=== PATIENT | female | born 1965 | race Caucasian/White ===

== ENCOUNTER 2019-07-21 07:30 | Emergency (ER) | payer OTHER, SELFPAY ==
[2019-07-21] VITALS (29 sets, daily range): BP systolic 121–216; BP diastolic 59–94; PULSE 51–87; RESP 13–24; TEMP 36.8; O2SAT 94–99
--- NOTE | 2019-07-21 07:44 | DI.RAD.S_ITS ---
PROCEDURE: XR CHEST 1V INDICATIONS: chest pain TECHNIQUE: One view of the chest was acquired. COMPARISON: None. FINDINGS: Surgical changes and devices: None. Lungs and pleura: Lungs are clear. No pleural effusions or pneumothorax. Mediastinum: Mediastinal contours appear normal. Heart size is normal. Bones and chest wall: No suspicious bony lesions. Overlying soft tissues appear unremarkable. IMPRESSION: No acute cardiopulmonary pathology. Dictated by: Dhaval Bonilla M.D. on 07/21/2019 at 8:28 Approved by: Dhaval Bonilla M.D. on 07/21/2019 at 8:29
[2019-07-21] MEDS: ASPIRIN 81 MG CHEW TAB 324 MG PO (07:48)
[2019-07-21] MEDS: NITROGLYCERIN 0.4 MG SL TAB SL ×4 (07:49→10:48)
--- NOTE | 2019-07-21 07:49 | ED_ITS ---
HPI - Chest Pain General Chief Complaint: Chest Pain Stated Complaint: chest pain Time Seen by Provider: 07/21/19 07:40 History of Present Illness HPI narrative: 53-year-old woman with a history of hypertension and no prior cardiac events began having severe chest pain at 5:45 a.m. this morning after she got up in was taking a shower. She describes it as 8/10, pressure radiating through between her shoulder blades with a sharp stabbing component as well, she is dyspneic she is diaphoretic and clearly still hurting. Mild nausea no vomiting. She has been well until the pain acutely started. Does not describe dyspnea, exertional dyspnea, orthopnea, increased fatigue over the last number of days. She has had no fever, cough, cold, chills, increased edema, belly pain or other concerning findings recently. Related Data Home Medications Medication Instructions Recorded Confirmed lisinopril 20 mg PO DAILY 07/21/19 07/21/19 Allergies Allergy/AdvReac Type Severity Reaction Status Date / Time No Known Drug Allergies Allergy Verified 07/21/19 09:36 Review of Systems Review of Systems Narrative: All systems reviewed and are unremarkable except as noted in HPI and below Exam Narrative Exam Narrative: General: Moderately obese. Obvious distress with chest pain and diaphoresis. Able to give a complete and coherent history. Well-nourished well-developed HEENT: Moist mucous membranes, normal sclera with reactive pupils, Neck: No JVD, supple Respiratory: Lungs are clear to auscultation, no wheezing no rales no rhonchi. Full and symmetrical air movement Cardiac: Regular rate and rhythm no murmurs no bruits Abdomen: Soft nontender good bowel tones, no flank pain Skin: Warm and dry, no rashes Neurologic: Grossly neurologically intact with no obvious asymmetries or ab normalities Extremities: No trauma, well perfused Psych: Cooperative, appropriate insight and affect Initial Vital Signs Initial Vital Signs: Vital Signs Temperature 98.2 F 07/21/19 07:35 Pulse Rate 77 07/21/19 07:35 Respiratory Rate 24 07/21/19 07:35 Blood Pressure 216/94 H 07/21/19 07:35 Pulse Oximetry 96 07/21/19 07:35 Course Orders Ordered: Discontinued Medications Aspirin (Aspirin Chew) 324 mg PO NOW ONE Stop: 07/21/19 07:45 Last Admin: 07/21/19 07:48 Dose: 324 mg Documented by: JERO Heparin Sodium (Porcine) (Heparin) 7,500 unit IV NOW ONE Stop: 07/21/19 08:22 Last Admin: 07/21/19 08:40 Dose: 5,000 unit Documented by: JERO Heparin Sodium/Dextrose (Heparin Drip) 25,000 unit in 500 mls @ 20 mls/hr IV CONT THOMAS; Protocol Last Admin: 07/21/19 08:45 Dose: 1,000 units/hr, 20 mls/hr Documented by: JERO Metoprolol Tartrate (Lopressor) 5 mg IV Q5M THOMAS Stop: 07/21/19 08:11 Last Admin: 07/21/19 08:30 Dose: Not Given Documented by: Admin: 07/21/19 08:22 Dose: 2.5 mg Documented by: Admin: 07/21/19 08:05 Dose: 5 mg Documented by: JERO Morphine Sulfate (Morphine) 2 mg IV Q5MIN PRN PRN Reason: Chest Pain Last Admin: 07/21/19 10:48 Dose: 2 mg Documented by: JERO Nitroglycerin (Nitrostat) 0.4 mg SL [id number] PRN PRN Reason: Chest Pain Last Admin: 07/21/19 08:20 Dose: 0.4 mg Documented by: Admin: 07/21/19 07:57 Dose: 0.4 mg Documented by: Admin: 07/21/19 07:49 Dose: 0.4 mg Documented by: JERO Nitroglycerin (Nitro-Bid) 0.5 inch TOP NOW ONE Stop: 07/21/19 08:22 Last Admin: 07/21/19 08:36 Dose: 0.5 inch Documented by: JERO Nitroglycerin (Nitrostat) 0.4 mg SL NOW ONE Stop: 07/21/19 10:40 Last Admin: 07/21/19 10:48 Dose: 0.4 mg Documented by: JERO Nitroglycerin (Nitro-Bid) 0.5 inch TOP NOW ONE Stop: 07/21/19 10:40 Last Admin: 07/21/19 10:54 Dose: 0.5 inch Documented by: JERO Vital Signs Vital signs: Vital Signs - 8 hr 07/21/19 07:35 07/21/19 07:57 07/21/19 08:04 Temperature 98.2 F Pulse Rate 77 76 87 Respiratory Rate 24 15 Blood Pressure 216/94 H 161/77 H Blood Pressure [Right Arm] 146/74 H Pulse Oximetry 96 97 07/21/19 08:10 07/21/19 08:15 07/21/19 08:20 Temperature Pulse Rate 66 65 64 Respiratory Rate 18 23 Blood Pressure 140/71 Blood Pressure [Right Arm] 147/81 H 140/71 Pulse Oximetry 96 98 07/21/19 08:23 07/21/19 08:30 07/21/19 08:35 Temperature Pulse Rate 66 60 58 L Respiratory Rate 18 17 21 Blood Pressure Blood Pressure [Right Arm] 121/64 133/69 131/71 Pulse Oximetry 95 98 96 07/21/19 08:36 07/21/19 08:40 07/21/19 09:00 Temperature Pulse Rate 56 L 57 L 76 Respiratory Rate 16 21 Blood Pressure 133/59 L Blood Pressure [Right Arm] 145/70 H 159/70 H Pulse Oximetry 98 98 07/21/19 09:05 07/21/19 09:15 07/21/19 09:30 Temperature Pulse Rate 55 L 55 L 54 L Respiratory Rate 14 13 18 Blood Pressure Blood Pressure [Right Arm] 136/63 127/65 126/67 Pulse Oximetry 97 97 96 07/21/19 09:37 07/21/19 09:45 07/21/19 10:00 Temperature Pulse Rate 53 L 51 L 51 L Respiratory Rate 22 18 14 Blood Pressure Blood Pressure [Right Arm] 124/67 130/66 133/70 Pulse Oximetry 98 97 98 07/21/19 10:30 07/21/19 10:48 07/21/19 11:00 Temperature Pulse Rate 52 L 54 L 61 Respiratory Rate 19 17 Blood Pressure 131/81 Blood Pressure [Right Arm] 130/69 133/73 Pulse Oximetry 97 99 07/21/19 11:45 Temperature Pulse Rate 58 L Respiratory Rate 16 Blood Pressure Blood Pressure [Right Arm] 139/81 Pulse Oximetry 98 MDM - Chest Pain Medical Records Data Attestation: I reviewed the patient's medical records. Lab Data Attestation: I reviewed the patient's lab results. Result diagrams: 07/21/19 07:38 07/21/19 07:38 Labs: Lab Results 0307/21/19 07/21/19 Range/Units 07:38 07:38 07:38 WBC 8.3 (4.5-11.0) X10^3/uL RBC 4.96 (4.0-5.2) X10^6/uL Hgb 14.2 (12.0-16.0) g/dL Hct 41.8 (36-46) % MCV 84.4 (80-100) fL MCH 28.6 (26-34) PG MCHC 33.9 (30-36) % RDW 14.0 (11.6-14.8) % Plt Count 279 (150-400) X10^3/uL Neut % (Auto) 52.7 (50-75) % Lymph % (Auto) 38.5 (25-40) % [place] % (Auto) 5.5 (3-14) % Eos % (Auto) 2.6 (2-4) % Baso % (Auto) 0.7 (0-2) % Neut # (Auto) 4400 (8169-5836) /uL Lymph # (Auto) 3200 (6718-2179) /uL [place] # (Auto) 500 (0-900) /uL Eos # (Auto) 200 (0-450) /uL Baso # (Auto) 100 (0-100) /uL PT 11.2 (10.1-12.7) SECONDS INR 1.0 (0.9-1.3) APTT 33 (26.4-36.2) SECONDS Sodium 137 (137-145) mmol/L Potassium 4.0 (3.4-5.1) mmol/L Chloride 104 (98-107) mmol/L Carbon Dioxide 22 (22-32) mmol/L BUN 11 (7-17) mg/dL Creatinine 0.58 (0.52-1.04) mg/dL Estimated GFR > 60.0 (>60) mL/min BUN/Creatinine Ratio 19.0 (6-22) Glucose 167 H (70-100) mg/dL Calcium 9.6 (8.4-10.2) mg/dL Total Bilirubin 0.6 (0.2-1.3) mg/dL AST 26 (14-36) IU/L ALT 28 (<35) IU/L Alkaline Phosphatase 82 (38-126) U/L Total Creatine Kinase 109 (30-135) U/L CK-MB (CK-2) 0.45 (<2.37) ng/mL CK-MB (CK-2) Rel Index 0.4 L (1.5-5.0) % Troponin I < 0.012 (0.01-0.034) ng/mL Total Protein 8.2 (6.3-8.2) g/dL Albumin 4.5 (3.5-5.0) g/dL Globulin 3.7 (1.7-4.1) g/dL Albumin/Globulin Ratio 1.2 (1.0-2.8) Lipase 78 (23-300) U/L 07/21/19 Range/Units 10:36 WBC (4.5-11.0) X10^3/uL RBC (4.0-5.2) X10^6/uL Hgb (12.0-16.0) g/dL Hct (36-46) % MCV (80-100) fL MCH (26-34) PG MCHC (30-36) % RDW (11.6-14.8) % Plt Count (150-400) X10^3/uL Neut % (Auto) (50-75) % Lymph % (Auto) (25-40) % [place] % (Auto) (3-14) % Eos % (Auto) (2-4) % Baso % (Auto) (0-2) % Neut # (Auto) (1698-6436) /uL Lymph # (Auto) (5009-9499) /uL [place] # (Auto) (0-900) /uL Eos # (Auto) (0-450) /uL Baso # (Auto) (0-100) /uL PT (10.1-12.7) SECONDS INR (0.9-1.3) APTT (26.4-36.2) SECONDS Sodium (137-145) mmol/L Potassium (3.4-5.1) mmol/L Chloride (98-107) mmol/L Carbon Dioxide (22-32) mmol/L BUN (7-17) mg/dL Creatinine (0.52-1.04) mg/dL Estimated GFR (>60) mL/min BUN/Creatinine Ratio (6-22) Glucose (70-100) mg/dL Calcium (8.4-10.2) mg/dL Total Bilirubin (0.2-1.3) mg/dL AST (14-36) IU/L ALT (<35) IU/L Alkaline Phosphatase (38-126) U/L Total Creatine Kinase (30-135) U/L CK-MB (CK-2) (<2.37) ng/mL CK-MB (CK-2) Rel Index (1.5-5.0) % Troponin I < 0.012 (0.01-0.034) ng/mL Total Protein (6.3-8.2) g/dL Albumin (3.5-5.0) g/dL Globulin (1.7-4.1) g/dL Albumin/Globulin Ratio (1.0-2.8) Lipase (23-300) U/L Imaging Data Chest x-ray: Attestation: I personally reviewed and interpreted this imaging study as follows: Radiologist's Impression: IMPRESSION: No acute cardiopulmonary pathology. Dictated by: Dhaval Bonilla M.D. on 07/21/2019 at 8:28 CTA chest abdomen pelvis: Radiologist's Impression: IMPRESSION: No aneurysm or aortic dissection found, no pulmonary embolus seen. Source of current pain syndrome is not identified. Note is made of moderate fatty infiltration throughout the liver. No acute disease. Dictated by: Mark Matos M.D. on 07/21/2019 at 9:11 ECG Data Attestation: I personally reviewed and interpreted this ECG as follows: Interpretation: EKG 1. 7:37 sinus rhythm at a rate of 68 ST T wave changes anteriorly in V1 V2 V3, minor not meeting STEMI criteria but concerning given clinical situation Q-waves in lead III EKG #2 7:54 sinus rhythm at a rate of 80 Similar to initial EKG without worsening ST changes EKG #3 Sinus rhythm at a rate of [address]-T wave changes MDM Narrative Medical decision making narrative: 53-year-old woman presents with severe chest pain started while in shower. She drove herself to [employer] where her son met er and drove her from [facility]. Initially her pain was 8/10 and radiating through to her shoulder blades. After the 1st nitro is down to 3/10 but still bothering her between the shoulder blades. Initial EKG did not meet acute STEMI criteria. Will begin heparin, continue oral nitrates, IV metoprolol, topical nitrates and less pain is not resolved and continue to watch EKG findings and await blood work. Concern at this point is obviously an acute coronary syndrome that is not meeting STEMI criteria. 8:05 page to [facility] Cardiology, non STEMI. Assuming transfer will be needed, started with [facility] cardiology. We were unable to contact a physician with numbers 8:07 page to on-call Cardiology for [facility] 8:24 pain is down to a 1 after 3 nitro and 3 doses of IV metoprolol. No longer diaphoretic. Initial troponin is negative. Will repeat EKG and troponin in 2 hours. Anticipate need for transfer to facility were catheterization lab will eventually be available. 8:38 Dr Leary. Agrees with current plan. Suggested CTA given pain radiating to back and HTN. Will order. CXR does not show widened mediastinum. Pain is rated 2/10 currently, and much less noticible between her shoulder blades. 9:15 Dr Boo, agrees with transfer, requests admit to hospitalist service at [facility] 10:39 pain is increasing slightly with half an inch of nitropaste on. Increase to a full inch, treat with morphine. Third EKG is reviewed and shows no acute ST T wave findings. CTA does not suggest acute dissection or pulmonary embolism 11:14 2nd troponin is negative pain was improved with increase nitrates. Now she is describing pain that can be exacerbated with thoracic movement and manipulation of her left arm and shoulder. She states that previously the pain was not musculoskeletal at all. Will review with hospitalist at [facility] for appropriateness of admit versus transfer 11:48 Dr Bennett - will admit to [facility], but concerned that, with initial presentation severity and diaphoresis, that it may be more appropriate to go to [facility]. will discuss with [facility] hospitalist. 12:23 Dr Bailon, will accept pt at [facility]. Will await room confirmation and arrange transport. Pt notified. Discharge Plan Departure Patient Disposition: [facility] Clinical Impression: Acute coronary syndrome Discharge Date/Time: 07/21/19 14:40 Prescriptions: No Action lisinopril 20 mg tablet 20 mg PO DAILY RF: 0
[2019-07-21 07:56] LABS: Add Manual Diff / Slide Review NO; Basophils Absolute Auto 100 /uL (0-100); Basophils Percent Auto 0.7 % (0-2); Eosinophils Absolute Auto 200 /uL (0-450); Eosinophils Percent Auto 2.6 % (2-4); Hematocrit 41.8 % (36-46); Hemoglobin 14.2 g/dL (12.0-16.0); Lymphocytes Absolute Auto 3200 /uL (1100-4500); Lymphocytes Percent Auto 38.5 % (25-40); Mean Corpuscular HGB Conc 33.9 % (30-36); Mean Corpuscular Hemoglobin 28.6 PG (26-34); Mean Corpuscular Volume 84.4 fL (80-100); Monocytes Absolute Auto 500 /uL (0-900); Monocytes Percent Auto 5.5 % (3-14); Neutrophils Absolute Auto 4400 /uL (1500-7000); Neutrophils Percent Auto 52.7 % (50-75); Platelet Count 279 X10^3/uL (150-400); Prothrombin Time 11.2 SECONDS (10.1-12.7); Red Blood Cell Count 4.96 X10^6/uL (4.0-5.2); White Blood Cell Count 8.3 X10^3/uL (4.5-11.0)
[2019-07-21 07:59] LABS: PTT Partial Thromboplastin Tim 33 SECONDS (26.4-36.2)
[2019-07-21 08:00] LABS: Alanine Aminotransferase 28 IU/L (<35); Albumin 4.5 g/dL (3.5-5.0); Albumin Globulin Ratio 1.2 (1.0-2.8); Alkaline Phosphatase 82 U/L (38-126); Aspartate Aminotransferase 26 IU/L (14-36); Bilirubin Total 0.6 mg/dL (0.2-1.3); Blood Urea Nitrogen 11 mg/dL (7-17); Calcium 9.6 mg/dL (8.4-10.2); Carbon Dioxide 22 mmol/L (22-32); Chloride 104 mmol/L (98-107); Creatine Kinase 109 U/L (30-135); Estimated Glomerular Filt Rate > 60.0 mL/min (>60); Globulin 3.7 g/dL (1.7-4.1); Glucose 167 mg/dL (70-100); HEMOLYSIS < 15 (0-50); Lipase 78 U/L (23-300); Sodium 137 mmol/L (137-145); Total Protein 8.2 g/dL (6.3-8.2)
[2019-07-21] MEDS: METOPROLOL TARTRATE 5 MG/5 ML INJ IV ×2 (08:05→08:22)
[2019-07-21 08:12] LABS: Troponin I < 0.012 ng/mL (0.01-0.034)
[2019-07-21 08:15] LABS: CKMB % Relative Index 0.4 % (1.5-5.0); Creatine Kinase MB 0.45 ng/mL (<2.37)
[2019-07-21] MEDS: NITROGLYCERIN OINT 1 INCH/GM OINT...G. 0.5 INCH TOP ×2 (08:36→10:54)
[2019-07-21] MEDS: HEPARIN 5,000 UNIT/ML VIAL 7500 UNIT IV (08:40)
[2019-07-21] MEDS: HEPARIN DRIP 25,000 UNIT/500 ML IV.SOLN 20 UNIT IV (08:45)
--- NOTE | 2019-07-21 08:46 | DI.CT.S_ITS ---
PROCEDURE: CT ANGIO CHEST ABDOMEN PELVIS INDICATIONS: chest pain radiating through to shoulder blades, ?dissection TECHNIQUE: Precontrast 5 mm thick sections acquired from the lung apices to the iliac crests. After the administration of intravenous contrast, 2.5 mm thick sections again acquired from the lung apices to the iliac crests. Maximum intensity projection (MIP) oblique sagittal and coronal reformats were then acquired. For radiation dose reduction, the following was used: automated exposure control. COMPARISON: [facility], CR, XR CHEST 1V, 07/21/2019, 8:04. FINDINGS: Image quality: Excellent. AORTA: Intramural hematoma: Absent Maximum hematoma thickness: Not applicable Focal contrast enhancement: Intramural blood pool (< 2 mm neck or imperceptible communication with aortic lumen): Absent. Ulcer-like projection (broad communication with aortic lumen > 3 mm): Absent. Dissection: Absent Sudheer classification: Not applicable Maximum aortic diameter: 3.5 cm AP, 3.1 cm transverse at the ascending aorta, normal. Periaortic hematoma: . Absent. CHEST: Lungs and pleura: No acute airspace opacities. No pleural effusions or pneumothorax. Central and peripheral airways are patent and normal in caliber. Mediastinum: Heart size is normal. No pericardial effusion. No mediastinal or hilar adenopathy by size criteria. Central pulmonary arteries are normal in size. Esophagus is normal in caliber. No hiatal hernias. Bones and chest wall: No axillary adenopathy by size criteria. Thyroid gland appears normal. No suspicious bony lesions. No vertebral body compression fractures. ABDOMEN: Vasculature: Celiac trunk and mesenteric arteries are patent. Renal arteries are also patent. Solid organs: Liver is normal in size and enhancement. The liver appears diffusely fatty infiltrated. Gallbladder appears normal. Biliary system is non dilated. Pancreas enhances normally. Spleen is normal in size and enhancement. No adrenal nodules. Both kidneys are normal in size and enhancement, without hydronephrosis. Peritoneum and bowel: No free fluid or air. Bowel loops are normal in caliber and wall thickness. Nodes and vessels: No retroperitoneal or mesenteric adenopathy by size criteria. Inferior vena cava is normal in morphology. Miscellaneous: No ventral hernias. PELVIS: Genitourinary: Bladder wall thickness is normal. Miscellaneous: No inguinal hernias or adenopathy. No ventral hernias. Bones: No suspicious bony lesions. No vertebral body compression fractures. IMPRESSION: No aneurysm or aortic dissection found, no pulmonary embolus seen. Source of current pain syndrome is not identified. Note is made of moderate fatty infiltration throughout the liver. No acute disease. Dictated by: Mark Matos M.D. on 07/21/2019 at 9:11 Approved by: Mark Matos M.D. on 07/21/2019 at 9:19
[2019-07-21] MEDS: MORPHINE 2 MG/ML INJ IV (10:48)
[2019-07-21 11:07] LABS: Troponin I < 0.012 ng/mL (0.01-0.034)
--- NOTE | 2019-08-06 10:22 | PC.NURSE ---
IV Heparin running upon patient transfer at 1440 per RN Karen
== END 2019-07-21 14:40 | disposition short-term general hospital (02) ==
PROVIDERS: Emergency Provider Emergency Medicine
DX: I24.9 Acute ischemic heart disease, unspecified (principal); I10 Essential (primary) hypertension
CPT/HCPCS: 36415; 71045; 71275; 74174; 80053; 82550; 82553; 83690; 84484; 85025; 85610; 85730; 93005; 96365; 96366; 96374; 96375; 99285; J1644; J2270; Q9967

== ENCOUNTER → 2020-04-08 17:35 | Outpatient (CLI) | payer OTHER, SELFPAY ==
--- NOTE | 2020-04-08 | DI.MRI.S_ITS ---
PROCEDURE: MR KNEE LT WO CON INDICATIONS: Pain in left knee TECHNIQUE: Noncontrast sagittal PD fast spin echo and T2 fast spin echo with fat saturation, sagittal 3-D FLASH with fat saturation; coronal T1 spin echo and PD fast spin echo with fat saturation, and axial PD fast spin echo with fat saturation through the knee. COMPARISON: [facility], , KNEE 3V LEFT, 04/24/2015, 18:28. FINDINGS: Image quality: Excellent. Menisci: There is medial meniscal extrusion. Horizontal tear versus intrasubstance degeneration of the posterior horn of the medial meniscus. Possible vertical tear in the peripheral aspect of the body of the medial meniscus. The lateral meniscus demonstrates morphology and internal signal. The meniscal root ligaments appear intact. Cruciate ligaments: The anterior and posterior cruciate ligaments appear intact. Medial structures: The medial collateral ligament appears intact. The semimembranosus tendon insertions and meniscocapsular junction appear intact. There is pes anserinus tendons bursal fluid consistent with bursitis. Lateral structures: The lateral collateral ligament, long and short heads of the biceps femoris tendon appear intact. The popliteus tendon appears normal. Iliotibial band appears normal. Anterior structures: The quadriceps and patellar tendons appear intact. Patellar alignment is normal. No femoral trochlear dysplasia or ventral trochlear prominence. No edema in the infrapatellar fat pad. Bones and cartilage: There is red marrow conversion. No bone marrow contusions or fractures. Tricompartmental cartilage loss, most pronounced in the medial femorotibial compartments. There is denudation of weight-bearing portion of the medial femoral condyle. Subchondral edema in the medial femoral condyle is noted. Joint space: There is moderate knee joint fluid. There is a moderate to large sized Rodriguez's cyst. Rodriguez's cyst. Normal appearing synovial plicae are incidentally noted. IMPRESSION: 1. Horizontal tear versus intrasubstance degeneration of the posterior horn of the medial meniscus. There may be a vertical tear of the peripheral aspect of the body of the medial meniscus. 2. 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 3. Pes anserinus bursitis. 4. Large Rodriguez's cyst. 5. Moderate size knee joint effusion. 6. Red marrow conversion. This finding may be associated with anemia, hematological disorder or COPD. Dictated by: Kirsten Torres M.D. on 04/08/2020 at 21:40 Approved by: Kirsten Torres M.D. on 04/09/2020 at 8:35
== END ==
PROVIDERS: Referring Provider Family Medicine; Visit Provider Family Medicine
DX: M25.562 Pain in left knee (principal); M94.262 Chondromalacia, left knee; M71.562 Other bursitis, not elsewhere classified, left knee; M71.22 Synovial cyst of popliteal space [Baker], left knee; M25.462 Effusion, left knee
CPT/HCPCS: 73721

== ENCOUNTER → 2020-05-07 15:58 | Outpatient (CLI) | payer OTHER, SELFPAY ==
--- NOTE | 2020-05-07 | DI.MG.S_ITS ---
BILATERAL DIGITAL SCREENING MAMMOGRAM 3D/2D WITH CAD: 05/07/2020 CLINICAL: Routine screening. Comparison is made to exams dated: 03/21/2016 mammogram, 05/30/2017 mammogram, and 07/17/2018 mammogram - [facility]. The tissue of both breasts is heterogeneously dense. This may lower the sensitivity of mammography. Current study was also evaluated with a Computer Aided Detection (CAD) system. No significant masses, calcifications, or other findings are seen in either breast. There has been no significant interval change. IMPRESSION: NEGATIVE There is no mammographic evidence of malignancy. A 1 year screening mammogram is recommended. This exam was interpreted at Station ID: [id number]. NOTE: For mammograms, a report in lay terms will be sent to the patient. Approximately 15% of breast malignancies will not be visualized mammographically. In the management of a palpable breast mass, a negative mammogram must not discourage biopsy of a clinically suspicious lesion. Electronically Signed By: Spencer pennington/jaky:05/07/2020 18:46:45 letter sent: Normal Exam ACR BI-RADS Category 1: Negative [id number]
== END ==
PROVIDERS: PCP Family Medicine; Referring Provider Family Medicine; Visit Provider Family Medicine
DX: Z12.31 Encounter for screening mammogram for malignant neoplasm of breast (principal)
CPT/HCPCS: 77063; 77067

== ENCOUNTER → 2020-05-31 09:17 | Outpatient (CLI) | payer OTHER, SELFPAY ==
[2020-05-31 12:04] LABS: COVID19 -Nasal RAPID Negative (Negative)
== END ==
PROVIDERS: PCP Family Medicine; Visit Provider Nurse Practitioner
DX: Z01.812 Encounter for preprocedural laboratory examination (principal); Z20.822 Contact with and (suspected) exposure to COVID-19
CPT/HCPCS: 87635

== ENCOUNTER 2020-06-02 11:23 | Day surgery (SDC) | payer OTHER, SELFPAY ==
[2020-06-02] VITALS (8 sets, daily range): BP systolic 114–142; BP diastolic 61–85; PULSE 60–85; RESP 16–18; TEMP 36.2–36.7; O2SAT 95–100; BMI 38.7
--- NOTE | 2020-06-02 | PATH_ITS ---
[facility] Accession Number: [id number] . 01 Material submitted: . PART A: colon - DESCENDING COLON POLYP PART B: colon - SIGMOID POLYP X3 . 01 Clinical history: . SDC . 02 Diagnosis: A. Descending Colon, Polyp, Biopsy: Inflammatory polyp. . B. Sigmoid Colon, Polyp x3, Biopsy: Fragments of hyperplastic polyp and inflammatory polyp. MRV 06/07/2020 1106 Local . 02 Electronically signed: . Zhane Lange MD, Pathologist NPI- [id number] . 01 Gross description: . Part A: DESCENDING COLON POLYP: Received in formalin is 1 fragment(s) of butler, soft tissue measuring 0.4 x 0.4 x 0.3 cm submitted entirely in 1 cassette(s) Part B: SIGMOID POLYP X3: Received in formalin are 3 fragment(s) of butler, soft tissue measuring 0.2 x 0.2 x 0.2 cm to 0.4 x 0.3 x 0.2 cm submitted entirely in 1 cassette(s) /KRISTOPHER 06/03/2020 1832 Local . 02 Pathologist provided ICD-10: K63.5 . 02 CPT . 404723, [id number] Performed at: 01 [facility] [address] [facility], [place], [place] [id number] MD iGlberto Hallman MD Phone: [phone] Performed at: 02 [facility] [address] [place], [place] [id number] MD Zhane Lange MD Phone: [phone]
[2020-06-02] MEDS: SODIUM CHLORIDE 0.9% 1,000 ML 70 ML IV (11:51)
--- NOTE | 2020-06-02 12:22 | P.HP_ITS ---
History of Present Illness History of Present Illness Date Patient Seen: 06/02/20 Time Patient Seen: 12:20 Chief complaint: SDC Narrative: Patient is a very pleasant 54-year-old female who presented for colonoscopy. She has not had previous colonoscopy. Denies family history of colon cancer colon polyps. Denies diarrhea or constipation. Denies rectal bleeding. Patient History Family & Social History Social History: household members children Tobacco & Substance use: Smoking Status Never smoker alcohol intake current alcohol intake frequency holiday/special occasion Substance Use Type does not use Meds Home Medications and Allergies Home Medications Medication Instructions Recorded Confirmed Type lisinopril 40 mg PO DAILY 07/21/19 06/02/20 History aspirin [Aspirin Low Dose] 81 mg PO DAILY 06/02/20 06/02/20 History atorvastatin 20 mg PO QPM 06/02/20 06/02/20 History meloxicam 7.5 mg PO DAILY 06/02/20 06/02/20 History metoprolol tartrate 25 mg PO DAILY 06/02/20 06/02/20 History Allergies Allergy/AdvReac Type Severity Reaction Status Date / Time No Known Drug Allergies Allergy Verified 06/02/20 11:32 Review of Systems Review of Systems ROS: Yes All systems reviewed with the patient and are negative except as otherw ise documented Exam Vital Signs (past 8 hours): - 06/02/20 11:38 Temperature 97.1 F L Pulse Rate 85 Respiratory Rate 17 Blood Pressure 142/85 H Pulse Oximetry 99 Oxygen Delivery Method Room Air Const General: cooperative, healthy appearing, comfortable and well developed Nutritional Appearance: well nourished and obese [facility] Head: normal to inspection, normocephalic and atraumatic Resp Effort & Inspection: normal respiratory effort and able to speak in complete sentences Auscultation: clear to auscultation bilaterally Cardio Rate: regular rate Rhythm: regular rhythm Heart Sounds: S1 normal and S2 normal GI Inspection: obesity Palpation: soft Auscultation: normal bowel sounds Extrem Right lower extremity: no edema Left lower extremity: no edema Assessment & Plan Assessment & Plan narrative: 1. Average risk Screening colonoscopy, no previous colonoscopy Colonoscopy today, further recommendations to follow
[2020-06-02] MEDS: fentaNYL 250 MCG/5 ML INJ IV (12:52)
[2020-06-02] MEDS: MIDAZOLAM 5 MG/5 ML VIAL IV (12:52)
--- NOTE | 2020-06-02 12:53 | PM.OP.ENDO ---
Operative Date/Time/Diagnoses Date of procedure: 06/02/20 Time of procedure: 12:28 Procedure Notes Procedure in detail: Surgeon: Cherelle Brewer DO Procedure: Colonoscopy with polypectomy Preoperative diagnosis: 1. Average risk screening colonoscopy, no prior colonoscopy Postoperative diagnosis: 1. 8 mm pedunculated polyp in the descending colon 2. Three polyps in the sigmoid colon 3-5mm 3. Diverticulosis in the descending and sigmoid colon 4. Grade 1 internal hemorrhoids 5. Normal-appearing terminal ileum, otherwise unremarkable colonoscopy Medications: Conscious sedation using 4 mg IV of Midazolam and 100 mcg IV of Fentanyl Preanesthesia Assessment An H and P was performed/updated and the Px?s ASA class is 2. The procedure was discussed in detail with the patient. The potential risks and complications including infection, bleeding, missed lesions, perforation, need for surgery in case of perforation, prolonged hospital stay, and were explained. A brief question and answer period was allotted and once all questions were answered, informed consent was obtained. The patient was brought back to the procedure room and placed on standard monitoring. The patient?s vital signs were monitored continuously throughout the entire procedure. Prior to starting, a timeout was performed to confirm the patient?s identity, allergies, medications, and procedure. Procedure in detail The patient was placed in left lateral decubitus position and once adequate sedation was obtained a ASIF was performed. The digital rectal examination did not reveal any palpable lesions. The tip of the colonoscope was placed in the anal canal and advanced without difficulty all the way to the cecum which was identified by the appendiceal orifice and the ileocecal valve. Careful examination of all redmond of the colon was performed with irrigation of any residual stool. Second pass evaluation of the ascending colon was completed. Terminal ileum was unremarkable. Pedunculated polyp 8 mm noted in the descending colon, removed with hot snare. Three polyps in the sigmoid colon ranging from 3-5 mm removed with cold snare. Scattered diverticulosis noted in the descending and sigmoid colon. Grade 1 internal hemorrhoids were noted on retroflexion. The patient tolerated the procedure well and will be brought back to the recovery area to be discharged once criteria are met. The prep was judged to be good/excellent and adequate to identify polyps less than 5 mm. The withdrawal time was 11min. The total physician intraservice time was 20min. Complications There were no complications and estimated blood loss was minimal. Recommendations: Resume previous diet, recommend high-fiber Continue outPx medications Follow up pathology results Repeat colonoscopy after pathology results are reviewed An emergency contact number was given to the patient for any complications related to the procedure
== END 2020-06-02 13:40 | disposition home or self-care (01) ==
PROVIDERS: PCP Family Medicine; Referring Provider Family Medicine; Visit Provider Student in an Organized Health Care Education/Training Program
PROC: 0DJD8ZZ Inspection of Lower Intestinal Tract, Via Natural or Artificial Opening Endoscopic (ICD-10-PCS; CPT 45378; principal; 2020-06-02 12:30)
DX: Z12.11 Encounter for screening for malignant neoplasm of colon (principal); K57.30 Diverticulosis of large intestine without perforation or abscess without bleeding; K64.0 First degree hemorrhoids; K51.40 Inflammatory polyps of colon without complications
CPT/HCPCS: 45380; J2250; J3010

== ENCOUNTER 2022-09-17 12:16 | Emergency (ER) | payer OTHER, SELFPAY ==
[2022-09-17] VITALS (13 sets, daily range): BP systolic 134–224; BP diastolic 72–105; PULSE 60–76; RESP 17–24; TEMP 36.5; O2SAT 94–98
--- NOTE | 2022-09-17 12:29 | DI.CT.S_ITS ---
PROCEDURE: CT STROKE INDICATIONS: stroke symptoms TECHNIQUE: Noncontrast 4.5 mm thick angled axial sections acquired from the foramen magnum to the vertex, with coronal reformats. For radiation dose reduction, the following was used: automated exposure control, adjustment of mA and/or kV according to patient size. COMPARISON: None. FINDINGS: Image quality: Excellent. CSF spaces: Basal cisterns are patent. No extra-axial fluid collections. Ventricles are normal in size and shape. Brain: No midline shift. No intracranial masses or hemorrhage. Amaro-white matter interface is normal. Skull and face: Calvarium and visualized facial bones are intact, without suspicious lesions. Hyperostosis frontalis interna. Sinuses: Visualized sinuses and mastoids are clear. IMPRESSION: 1. No CT evidence of acute intracranial process. 2. Discussed with Dr. Escobedo in the emergency room at 11:51 hours [place] daylight time. This study fulfills neurological imaging criteria for inclusion or exclusion of acute stroke therapies based on available published neurological imaging guidelines. Dictated by: Nancy Perkins M.D. on 09/17/2022 at 11:49 Approved by: Nancy Perkins M.D. on 09/17/2022 at 11:52
--- NOTE | 2022-09-17 12:30 | DI.CT.S_ITS ---
PROCEDURE: CT ANGIO HEAD AND NECK INDICATIONS: stroke symptoms TECHNIQUE: After the administration of intravenous contrast, 1 mm thick sections acquired from the aortic arch through the [place] of [place]. Post-contrast 4.5 mm thick sections then re-acquired from the foramen magnum to the vertex. 3-dimensional hxiidxm-vhphmvefw-arfbbunikl (MIP) and/or volume rendering reformats were acquired of the central intracranial vasculature and neck separately. For radiation dose reduction, the following was used: automated exposure control, adjustment of mA and/or kV according to patient size. COMPARISON: None. FINDINGS: Image quality: Excellent. BRAIN: CSF spaces: Ventricles are normal in size and shape. Basal cisterns are patent. No extra-axial fluid collections. Brain: No midline shift. No intracranial bleeds or masses. Amaro-white matter interface appears intact. Skull and face: Calvarium and facial bones appear intact, without suspicious lesions. Orbits appear normal. Sinuses: Sinuses and mastoids are clear. HEAD CT ANGIOGRAPHY: Anterior circulation: Intracranial internal carotid arteries are normal in size and flow. The flow within the paired anterior cerebral arteries is normal and symmetric. The flow within the middle cerebral arteries is normal and symmetric. The anterior communicating artery is seen. No aneurysms are seen. Posterior circulation: Visualized portions of the vertebral arteries demonstrate normal caliber, and join to form a normal appearing basilar artery. Flow within the posterior cerebral arteries is normal and symmetric. No aneurysms are seen. NECK CT ANGIOGRAPHY: Carotid system: The great vessels demonstrate a conventional anatomy as they arise from the aortic arch. The origins of the common carotid arteries appear patent. The common carotid arteries demonstrate normal caliber and courses. The bifurcation regions are both widely patent. The internal carotid arteries demonstrate normal calibers and courses. Posterior circulation: The origins of the vertebral arteries both appear widely patent. The more superior extracranial portions of both vertebral arteries also demonstrate normal courses and calibers. They join to form a normal appearing basilar artery. Soft tissues: Visualized neck soft tissues demonstrate no suspicious abnormalities. Bilateral cervical chain lymph nodes are moderately prominent in size but demonstrate fatty krys, likely benign. No suspicious soft tissue masses. Bones: No suspicious bony lesions. Visualized cervical spine appears normally aligned. IMPRESSION: 1. No CT evidence of acute intracranial process or enhancement. 2. No intracranial arterial stenosis, occlusions, or aneurysms. 3. Normal carotid and vertebral systems without significant stenosis, atherosclerosis, or dissection. Any quantitative measurements of stenosis were performed using NASCET criteria. Dictated by: Nancy Perkins M.D. on 09/17/2022 at 12:34 Approved by: Nancy Perkins M.D. on 09/17/2022 at 12:43
--- NOTE | 2022-09-17 12:31 | ED.NEUROSD ---
HPI - Neuro Symptoms/Deficit General Chief Complaint: Neuro Symptoms/Deficit Stated Complaint: hard to swallow, l/s facial numbness, droopy mouth Time Seen by Provider: 09/17/22 12:20 Source: patient Mode of arrival: Ambulatory History of Present Illness HPI Narrative: 56-year-old female with history of hypertension and hyperlipidemia presents with a chief complaint of headache and left-sided facial weakness with slurred speech that started gradually over the course of the afternoon on [place] any dizziness or lightheadedness. She has had no chest pain or shortness of breath, nor any runny nose, sore throat or cough. She also complains of some blurred vision over that time frame. She denies any ataxia, trouble with numbness, tingling or weakness of her extremities or other concerning symptoms. Related Data Home Medications Medication Instructions Recorded Confirmed lisinopril 20 mg tablet 40 mg PO DAILY 07/21/19 06/02/20 aspirin 81 mg tablet,delayed 81 mg PO DAILY 06/02/20 06/02/20 release (Dixie Low Dose Aspirin) atorvastatin 20 mg tablet 20 mg PO QPM 06/02/20 06/02/20 meloxicam 7.5 mg tablet 7.5 mg PO DAILY 06/02/20 06/02/20 metoprolol tartrate 25 mg tablet 25 mg PO DAILY 06/02/20 06/02/20 Previous Rx's Medication Instructions Recorded prednisone 20 mg tablet 60 mg PO DAILY 7 days #21 tabs 09/17/22 valacyclovir 1 gram tablet 1,000 mg PO TID 7 days #21 tabs 09/17/22 Allergies Allergy/AdvReac Type Severity Reaction Status Date / Time No Known Drug Allergies Allergy Verified 06/02/20 11:32 Review of Systems Review of Systems Narrative: GENERAL: Denies chills, fatigue, malaise, fever, sweats. HEENT: See HPI RESPIRATORY: Denies dyspnea, cough, wheezing, hemoptysis, sputum. CARDIOVASCULAR: Denies chest pain, palpitations, orthopnea, edema, GASTROINTESTINAL: Denies nausea, vomiting, abdominal pain, diarrhea, constipation, melena. : Denies dysuria, frequency, incontinence, hematuria, urinary retention. MUSCULOSKELETAL: denies weakness, joint pain, or bony pain SKIN: Denies rash, skin lesions, or other NEUROLOGIC: see HPI PSYCHIATRIC: No concerning psychosocial issues. 12 point review of systems is negative except for those stated above Patient History Social History household members: children Smoking Status: Never smoker alcohol intake: current Smoking Status: Never smoker alcohol intake frequency: holidays/special occasions only Substance Use Type: does not use Exam Narrative Exam Narrative: GENERAL: [56] year old patient appears stated age. Well-developed patient, in mild distress. HEAD: Atraumatic. Normocephalic. EYES: Pupils equal round and reactive. Extraocular motions intact. No scleral icterus. No injection or drainage. ENT: Nose without bleeding, purulent drainage. Throat without erythema, tonsillar hypertrophy or exudate. Airway patent. NECK: Trachea midline. Non tender CARDIOVASCULAR: Regular rate and rhythm without murmurs, gallops, or rubs. RESPIRATORY: Clear to auscultation. Breath sounds equal bilaterally. No wheezes, rales, or rhonchi. GASTROINTESTINAL: Abdomen soft, non-tender, nondistended. EXTREMITIES: No edema or joint tenderness. BACK: Nontender without deformity or crepitance. No flank tenderness. NEURO: AOx3. cranial nerves 2 through 12 grossly intact SKIN: No rash or erythema of visible areas Initial Vital Signs Initial Vital Signs: Vital Signs Temperature 97.7 F 09/17/22 12:20 Pulse Rate 74 09/17/22 12:20 Respiratory Rate 18 09/17/22 12:20 Blood Pressure 224/105 H 09/17/22 12:20 Pulse Oximetry 96 09/17/22 12:20 Oxygen Delivery Method Room Air 09/17/22 12:20 Scores NIH Stroke Scale Level of Conciousness: Alert, keenly responsive Ask month/age: Answers both questions correctly. Open/close eyes, close hand: Performs both tasks correctly Best gaze horizontal: Normal Visual rutledge: No visual loss Facial palsy: Complete paralysis, absence of movement in the upper and lower face Left arm drift: No drift for full 10 sec Right arm drift: No drift for full 10 sec Left leg drift: No drift for full 5 sec Right leg drift: No drift for full 5 sec Limb ataxia: Absent Sensory on face/arms/legs: Mild to moderate sensory loss, can tell touch Best language: No aphasia, normal Dysarthria: Mild to mod,some slurring Extinction or inattention: No abnormality Total NIH Stroke scale score: 5 Course Orders Ordered: ED Orders 09/17/22 12:26 Complete Blood Count AUTO DIFF Stat Comprehensive Metabolic Panel Stat Ethanol (ETOH) Stat PTT Partial Thromboplastin Jovan Stat Prothrombin Time INR Stat Troponin & CK Cardiac Panel Stat 09/17/22 12:29 CT Stroke Stat Urine Drug Screen, Rapid Stat EKG-12 Lead Stat 09/17/22 12:30 CT angio head and neck Stat 09/17/22 13:00 COVID19 -Nasal RAPID Stat 09/17/22 13:46 Urinalysis and Microscopic Stat Reevaluation(s) Reevaluation #1: repeat blood pressure notes that she is improved to the 150s. She still has mild headache remainder of neurologic symptoms are persistent Time: 12:36 Vital Signs Vital signs: Vital Signs - 8 hr 09/17/22 12:20 09/17/22 12:21 09/17/22 12:21 Temperature 97.7 F Pulse Rate 74 76 Respiratory Rate 18 Blood Pressure 224/105 H 224/105 H Pulse Oximetry 96 97 Oxygen Delivery Method Room Air 09/17/22 12:30 09/17/22 12:31 09/17/22 12:31 Temperature Pulse Rate 76 73 Respiratory Rate Blood Pressure 157/85 H Pulse Oximetry 96 96 Oxygen Delivery Method 09/17/22 12:47 09/17/22 12:54 09/17/22 12:54 Temperature Pulse Rate 71 67 Respiratory Rate 18 24 Blood Pressure 186/77 H Pulse Oximetry 96 95 Oxygen Delivery Method Room Air 09/17/22 13:00 09/17/22 13:00 09/17/22 13:10 Temperature Pulse Rate 64 Respiratory Rate 22 Blood Pressure 170/72 H 165/74 H Pulse Oximetry 96 Oxygen Delivery Method 09/17/22 13:10 09/17/22 13:23 09/17/22 13:30 Temperature Pulse Rate 65 64 62 Respiratory Rate 19 17 18 Blood Pressure Pulse Oximetry 94 96 96 Oxygen Delivery Method 09/17/22 13:45 Temperature Pulse Rate 62 Respiratory Rate 19 Blood Pressure Pulse Oximetry 94 Oxygen Delivery Method MDM - Neuro Symptoms/Deficit Lab Data 09/17/22 12:26 09/17/22 12:26 Labs: Lab Results 09/17/22 09/17/22 09/17/22 Range/Units 12:26 12:26 12:26 WBC 8.3 (4.5-11.0) X10^3/uL RBC 4.83 (4.0-5.2) X10^6/uL Hgb 14.0 (12.0-16.0) g/dL Hct 40.6 (36-46) % MCV 84.0 (80-100) fL MCH 29.0 (26-34) PG MCHC 34.6 (30-36) % RDW 14.0 (11.6-14.8) % Plt Count 258 (150-400) X10^3/uL Neut % (Auto) 48.2 L (50-75) % Lymph % (Auto) 40.2 H (25-40) % [place] % (Auto) 6.3 (3-14) % Eos % (Auto) 4.6 H (2-4) % Baso % (Auto) 0.7 (0-2) % Neut # (Auto) 4000 (8392-2220) /uL Lymph # (Auto) 3300 (5321-2905) /uL [place] # (Auto) 500 (0-900) /uL Eos # (Auto) 400 (0-450) /uL Baso # (Auto) 100 (0-100) /uL PT 11.7 (10.1-12.7) SECONDS INR 1.0 (0.9-1.3) APTT 30 (26-36) SECONDS Sodium 137 (137-145) mmol/L Potassium 4.0 (3.4-5.1) mmol/L Chloride 103 (98-107) mmol/L Carbon Dioxide 27 (22-32) mmol/L BUN 14 (7-17) mg/dL Creatinine 0.56 (0.52-1.04) mg/dL Estimated GFR > 60 (>60) mL/min BUN/Creatinine Ratio 25.0 H (6-22) Glucose 167 H (70-100) mg/dL Calcium 8.9 (8.4-10.2) mg/dL Total Bilirubin 0.6 (0.2-1.3) mg/dL AST 30 (14-36) IU/L ALT 39 H (<35) IU/L Alkaline Phosphatase 91 (38-126) U/L Total Creatine Kinase 109 (30-135) U/L CK-MB (CK-2) TNP CK-MB (CK-2) Rel Index TNP Troponin I < 0.012 (0.01-0.034) ng/mL Total Protein 7.9 (6.3-8.2) g/dL Albumin 4.4 (3.5-5.0) g/dL Globulin 3.5 (1.7-4.1) g/dL Albumin/Globulin Ratio 1.3 (1.0-2.8) Urine Color Urine Appearance Urine pH (4.5-8.0) Ur Specific [place] (1.000-1.035) Urine Protein (Negative) Urine Glucose (UA) (Negative) g/dL Urine Ketones (NEGATIVE) Urine Occult Blood (Negative) Urine Nitrate (Negative) Urine Bilirubin (NEGATIVE) Urine Urobilinogen (0.2) E.U./dL Ur Leukocyte Esterase (NEGATIVE) Ethyl Alcohol < 10 ( - 10) mg/dL SARS-CoV-2 (PCR) (Negative) 09/17/22 09/17/22 Range/Units 13:00 13:20 WBC (4.5-11.0) X10^3/uL RBC (4.0-5.2) X10^6/uL Hgb (12.0-16.0) g/dL Hct (36-46) % MCV (80-100) fL MCH (26-34) PG MCHC (30-36) % RDW (11.6-14.8) % Plt Count (150-400) X10^3/uL Neut % (Auto) (50-75) % Lymph % (Auto) (25-40) % [place] % (Auto) (3-14) % Eos % (Auto) (2-4) % Baso % (Auto) (0-2) % Neut # (Auto) (8326-9469) /uL Lymph # (Auto) (4609-9509) /uL [place] # (Auto) (0-900) /uL Eos # (Auto) (0-450) /uL Baso # (Auto) (0-100) /uL PT (10.1-12.7) SECONDS INR (0.9-1.3) APTT (26-36) SECONDS Sodium (137-145) mmol/L Potassium (3.4-5.1) mmol/L Chloride (98-107) mmol/L Carbon Dioxide (22-32) mmol/L BUN (7-17) mg/dL Creatinine (0.52-1.04) mg/dL Estimated GFR (>60) mL/min BUN/Creatinine Ratio (6-22) Glucose (70-100) mg/dL Calcium (8.4-10.2) mg/dL Total Bilirubin (0.2-1.3) mg/dL AST (14-36) IU/L ALT (<35) IU/L Alkaline Phosphatase (38-126) U/L Total Creatine Kinase (30-135) U/L CK-MB (CK-2) CK-MB (CK-2) Rel Index Troponin I (0.01-0.034) ng/mL Total Protein (6.3-8.2) g/dL Albumin (3.5-5.0) g/dL Globulin (1.7-4.1) g/dL Albumin/Globulin Ratio (1.0-2.8) Urine Color Yellow Urine Appearance Clear Urine pH 6.5 (4.5-8.0) Ur Specific [place] <=1.005 (1.000-1.035) Urine Protein Negative (Negative) Urine Glucose (UA) Negative (Negative) g/dL Urine Ketones Negative (NEGATIVE) Urine Occult Blood Negative (Negative) Urine Nitrate Negative (Negative) Urine Bilirubin Negative (NEGATIVE) Urine Urobilinogen 1.0 (0.2) E.U./dL Ur Leukocyte Esterase Negative (NEGATIVE) Ethyl Alcohol ( - 10) mg/dL SARS-CoV-2 (PCR) Negative (Negative) Point of Care Testing Glucose POC 136 MDM Narrative Medical decision making narrative: [56] year old patient presents with left-sided facial weakness Multiple etiologies for patient's symptoms considered including, but not limited to: [ stroke versus Poole's palsy] Prior Charts reviewed in our EMR Primary Historian: patient Labs reviewed and interpreted by myself: no significant lab abnormalities which would require a specific or immediate intervention Imaging reviewed: head CT and CTA of the head and neck are unremarkable and absent of any acute findings 56-year-old female with reassuring history and physical exam presents with isolated left-sided facial weakness and numbness that gradually started presenting on [place]. She has no other symptoms and unremarkable labs and imaging. Given the involved and in noted weakness of her forehead and upper lid this is certainly most consistent with Poole's palsy but given her initial high blood pressure and risk we performed the stroke workup nonetheless. In the end we discussed that this was certainly most related to Poole's palsy and given no other neurologic symptoms nor any findings on imaging this is extremely unlikely to be stroke. We did discuss that even if this worse stroke we are certainly outside of any interventional window at that point we discussed the importance of follow-up including the use of medications as directed. We discussed that despite our best efforts that not everybody that is recognized and treated with Poole's palsy has a complete resolution of symptoms. She understands this may be the case. Return precautions have been given and questions answered to her apparent satisfaction Findings and discharge diagnosis discussed with patient/family followed by verbalization of understanding Return precautions discussed with patient/family whom verbalize understanding of diagnosis and plan Discharge Plan Departure Patient Disposition: Home Clinical Impression: Poole's palsy Instructions: DI for [place] Palsy Activity Restrictions/Additional Instructions: *You have been diagnosed with [ Poole's palsy. As we discussed your history and physical exam are very reassuring and there are no abnormal findings in the lab work or CT scans to suggest stroke or other significant abnormality.] *What to do: *Please continue to take your regular medications as directed. [x ] New medication prescriptions sent to your pharmacy: [[facility] in [place]] [ ] New medication written as a paper prescription [ ] No new medications given *Please follow up with your primary care provider in 2-3 days, call for an appointment. Let them know you were seen in the Emergency Department and that we ask that you be seen in follow up. We will electronically transmit a record of today's note if your PCP is in our system *If you do not have a primary care provider please contact the [facility] Resource line at [phone]. They will ask some questions about your medical history and help get you set up with a doctor in the community. *Return to Emergency Department if you should have any new, worsening or concerning symptoms, such as [fever greater than 101 F, shaking chills, worsening pain, persistent vomiting or other bothersome symptoms] Prescriptions: New prednisone 20 mg tablet 60 mg PO DAILY 7 Days Qty: 21 0RF Rx Instructions: administer with food or milk valacyclovir 1 gram tablet 1,000 mg PO TID 7 Days Qty: 21 0RF No Action lisinopril 20 mg tablet 40 mg PO DAILY atorvastatin 20 mg Tablet 20 mg PO QPM aspirin [Dixie Low Dose Aspirin] 81 mg Tablet,Delayed Release (Dr/Ec) 81 mg PO DAILY meloxicam 7.5 mg Tablet 7.5 mg PO DAILY metoprolol tartrate 25 mg Tablet 25 mg PO DAILY Referrals: Alexus Darden DO [Primary Care Provider] - Stand Alone Forms: Patient Portal/API
[2022-09-17 12:39] LABS: Add Manual Diff / Slide Review NO; Basophils Absolute Auto 100 /uL (0-100); Basophils Percent Auto 0.7 % (0-2); Eosinophils Absolute Auto 400 /uL (0-450); Eosinophils Percent Auto 4.6 % (2-4); Hematocrit 40.6 % (36-46); Lymphocytes Absolute Auto 3300 /uL (1100-4500); Lymphocytes Percent Auto 40.2 % (25-40); Mean Corpuscular HGB Conc 34.6 % (30-36); Monocytes Absolute Auto 500 /uL (0-900); Monocytes Percent Auto 6.3 % (3-14); Neutrophils Absolute Auto 4000 /uL (1500-7000); Neutrophils Percent Auto 48.2 % (50-75); Platelet Count 258 X10^3/uL (150-400); Red Blood Cell Count 4.83 X10^6/uL (4.0-5.2); White Blood Cell Count 8.3 X10^3/uL (4.5-11.0)
[2022-09-17 12:51] LABS: Prothrombin Time 11.7 SECONDS (10.1-12.7)
[2022-09-17 12:53] LABS: PTT Partial Thromboplastin Tim 30 SECONDS (26-36)
[2022-09-17 12:56] LABS: Alanine Aminotransferase 39 IU/L (<35); Albumin 4.4 g/dL (3.5-5.0); Albumin Globulin Ratio 1.3 (1.0-2.8); Alkaline Phosphatase 91 U/L (38-126); Aspartate Aminotransferase 30 IU/L (14-36); Bilirubin Total 0.6 mg/dL (0.2-1.3); Blood Urea Nitrogen 14 mg/dL (7-17); Calcium 8.9 mg/dL (8.4-10.2); Carbon Dioxide 27 mmol/L (22-32); Chloride 103 mmol/L (98-107); Creatine Kinase 109 U/L (30-135); Estimated Glomerular Filt Rate > 60 mL/min (>60); Ethanol (ETOH) < 10 mg/dL; Globulin 3.5 g/dL (1.7-4.1); Glucose 167 mg/dL (70-100); HEMOLYSIS < 15 (0-50); Sodium 137 mmol/L (137-145); Total Protein 7.9 g/dL (6.3-8.2)
[2022-09-17 13:07] LABS: Troponin I < 0.012 ng/mL (0.01-0.034)
[2022-09-17 13:30] LABS: COVID19 -Nasal RAPID Negative (Negative)
[2022-09-17 13:55] LABS: Appearance Urine UA CLEAR; Bilirubin Urine UA NEGATIVE (NEGATIVE); Color Urine UA YELLOW; Glucose Urine UA NEGATIVE (Negative); Ketones Urine UA NEGATIVE (NEGATIVE); Leukocyte Esterase Urine UA NEGATIVE (NEGATIVE); Nitrite Urine UA NEGATIVE (Negative); Occult Blood Urine UA NEGATIVE (Negative); Protein Urine UA NEGATIVE (Negative); Specific Gravity Urine UA <=1.005 (1.000-1.035)
[2022-09-17 14:00] LABS: pH Urine UA 6.5 (4.5-8.0)
[2022-09-17 14:02] LABS: Ur Creatinine Normal (Normal); Ur Specific Gravity Normal (Normal); Urine pH Normal (Normal)
[2022-09-17 14:03] LABS: UR Morphine/Opiate cutoff 300 Negative (Negative); Urine Amphetamines Negative (Negative); Urine Barbiturates Negative (Negative); Urine Benzodiazepines Negative (Negative); Urine Cocaine Negative (Negative); Urine MDMA Negative (Negative); Urine Methadone Negative (Negative); Urine Methamphetamines Negative (Negative); Urine Oxycodone Negative (Negative); Urine Phencyclidine Negative (Negative); Urine Tetrahydrocannabinol Negative (Negative); Urine Tricyclic Antidepressant Negative (Negative)
[2022-09-17 14:09] LABS: Bacteria Urine Few (2-10); Culture Indicated Urine Cult Not Indicated; RBC Urine 0-1/HPF (0-5/HPF); Squamous Epithelial Cell Urine 1-5 /HPF (0-5/HPF); WBC Urine 0-1/HPF (0-5/HPF)
== END 2022-09-17 14:20 | disposition home or self-care (01) ==
PROVIDERS: Emergency Provider Emergency Medicine; PCP Family Medicine
DX: G51.0 Bell's palsy (principal); H53.8 Other visual disturbances; R07.9 Chest pain, unspecified; R29.705 NIHSS score 5; Z20.822 Contact with and (suspected) exposure to COVID-19
CPT/HCPCS: 36415; 70450; 70496; 70498; 80053; 80305; 80320; 81001; 82550; 82962; 84484; 85025; 85610; 85730; 87635; 93005; 93010; 99284; C9803; Q9967

== ENCOUNTER → 2024-03-12 08:15 | Outpatient (CLI) | payer OTHER, SELFPAY ==
--- NOTE | 2024-03-12 08:17 | DI.US.S_ITS ---
PROCEDURE: US ABDOMEN LIMITED INDICATIONS: RUQ PAIN TECHNIQUE: Real-time scanning was performed of the abdominal and retroperitoneal organs, with image documentation. COMPARISON: None. FINDINGS: Liver: Liver is enlarged with steatosis measuring 19.3 cm. Gallbladder: No gallstones. No wall thickening. No pericholecystic edema. Negative sonographic Fung's sign. Biliary ducts: Intrahepatic bile ducts are non-dilated. Extrahepatic bile duct caliber measures 8 1 mm. Normal is 6-7 mm or less in diameter, or 10 mm or less post-cholecystectomy. Pancreas: Visualized portions of the pancreas are sonographically normal. Miscellaneous: No free abdominal fluid. IMPRESSION: Hepatomegaly with steatosis. Dictated by: Ekaterina Gates M.D. on 03/12/2024 at 10:10 Approved by: Ekaterina Gates M.D. on 03/12/2024 at 10:11
== END ==
PROVIDERS: PCP Family Medicine; Referring Provider Nurse Practitioner Family; Visit Provider Nurse Practitioner Family
DX: K76.0 Fatty (change of) liver, not elsewhere classified (principal); R10.11 Right upper quadrant pain
CPT/HCPCS: 76705

== ENCOUNTER → 2025-01-21 12:09 | Outpatient (CLI) | payer OTHER, SELFPAY ==
--- NOTE | 2025-01-21 12:11 | EKG_ITS ---
[place] [id number] [place] [id number] Test Date: 2025-01-21 Pat Name: Ria Santiago Department: [facility] Room: Gender: Female [employer]: HAI : 1965 Requested By: Order Number: [id number] Reading MD: Valentino Santiago Measurements Intervals [place] Rate: 60 P: -12 MI: 200 QRS: -4 QRSD: 90 T: 90 QT: 394 QTc: 394 Interpretive Statements Normal sinus rhythm Low voltage QRS Possible Inferior infarct , age undetermined Electronically Signed On 01-21-2025 18:25:32 PDT by Valentino Santiago
[2025-01-21 12:56] LABS: Add Manual Diff / Slide Review NO; Hematocrit 41.1 % (36-46); Hemoglobin 14.1 g/dL (12.0-16.0); Lymphocytes Absolute Auto 3100 /uL (1100-4500); Mean Corpuscular HGB Conc 34.2 % (30-36); Mean Corpuscular Hemoglobin 29.2 PG (26-34); Mean Corpuscular Volume 85.2 fL (80-100); Platelet Count 268 X10^3/uL (150-400)
[2025-01-21 13:01] LABS: Hemoglobin A1C% w Est Avg Glu 6.2 % (4.0-6.0)
[2025-01-21 13:15] LABS: Blood Urea Nitrogen 15 mg/dL (7-17); Calcium 9.8 mg/dL (8.4-10.2); Carbon Dioxide 27 mmol/L (22-32); Chloride 104 mmol/L (98-107); Estimated Glomerular Filt Rate > 60 mL/min (>60); Glucose 123 mg/dL (70-99); HEMOLYSIS < 15 (0-50); Potassium 4.6 mmol/L (3.4-5.1); Sodium 140 mmol/L (137-145)
[2025-01-21 14:37] LABS: Appearance Urine UA CLEAR; Bilirubin Urine UA NEGATIVE (NEGATIVE); Color Urine UA YELLOW; Glucose Urine UA NEGATIVE (Negative); Ketones Urine UA NEGATIVE (NEGATIVE); Leukocyte Esterase Urine UA TRACE (NEGATIVE); Nitrite Urine UA NEGATIVE (Negative); Occult Blood Urine UA NEGATIVE (Negative); Protein Urine UA NEGATIVE (Negative); Specific Gravity Urine UA <=1.005 (1.000-1.035); Urobilinogen Urine UA 1.0 E.U./dL (0.2)
[2025-01-21 14:38] LABS: pH Urine UA 6.0 (4.5-8.0)
[2025-01-21 14:41] LABS: Culture Indicated Urine Specimen Cultured
== END ==
PROVIDERS: Referring Provider Orthopaedic Surgery; Visit Provider Orthopaedic Surgery
DX: Z01.818 Encounter for other preprocedural examination (principal); N39.0 Urinary tract infection, site not specified; R73.9 Hyperglycemia, unspecified; Z01.812 Encounter for preprocedural laboratory examination
CPT/HCPCS: 36415; 80048; 81001; 83036; 85025; 87086; 93005